=== PATIENT | female | born 1990 | race Caucasian/White ===

== ENCOUNTER 2018-05-16 20:28 | Inpatient (IN) ==
[2018-05-16] MEDS ORDERED: OXYTOCIN/DEXTROSE 5%-WATER 30 UNITS/500 ML BAG IV ONE (21:35)
[2018-05-16] MEDS ORDERED: ONDANSETRON HCL/PF 2 MG/ML VIAL IV PRN ×2 (21:35→22:05)
[2018-05-16] MEDS ORDERED: DEXTROSE 5%-LACTATED RINGERS 1,000 ML IV PRN (21:35)
[2018-05-16] MEDS ORDERED: RINGER'S SOLUTION,LACTATED 1,000 ML IV ONE (21:35)
[2018-05-16] MEDS ORDERED: NALOXONE HCL 1 MG/1 ML SYRG IV PRN (22:05)
[2018-05-16] MEDS ORDERED: BUPIVACAINE HCL/0.9 % NACL/PF 250 ML EP PRN (22:05)
[2018-05-16] MEDS ORDERED: fentaNYL CITRATE/PF 50 MCG/ML AMPUL IT SCH (22:15)
--- NOTE | 2018-05-16 22:24 | HP ---
Chief Complaint - Chief Complaint Date of Service: 05/16/18 Time of Service: 22:12 Chief Complaint: contractions History of Present Illness: 27 yo at 38 6/7 wks presents with complaint of contractions of severe intensity that started around 1800 today. Rh positive Rubella immune GBS negative Medical History (Last Reviewed 05/16/18 @ 22:20 by Dominguez Pacheco DO) Anemia affecting (Acute) Onset Date: 02/16/18 Celiac disease History of wisdom tooth extraction Onset Date: ~2009 Mononucleosis Ovarian cyst Onset Date: ~2015 UTI (urinary tract infection) Surgical History: Surgical History (Last Reviewed 05/16/18 @ 22:20 by Dominguez Pacheco DO) History of appendectomy Onset Date: ~11/2014 History of oral surgery History of tonsillectomy Onset Date: ~01/2013 Family History: Family History (Last Reviewed 05/16/18 @ 22:20 by Dominguez Pacheco DO) Aunt Von Willebrand disease Father Tourette's syndrome Mother Von Willebrand disease Sister Julito-Gastaut syndrome, intractable, with status epilepticus Development delay Grandfather Cancer Grandfather Cancer Grandmother Restless leg syndrome Social History: Preferred Language Kazakh Review Of Systems (GEN) - Review of Systems EENTM: Present: No Symptoms Reported Respiratory: Present: No Symptoms Reported Cardiac: Present: No Symptoms Reported Abdominal: Present: No Symptoms Reported Genitourinary: Present: No Symptoms Reported Musculoskeletal: Present: No Symptoms Reported Neurological: Present: No Symptoms Reported Skin: Present: No Symptoms Reported Endocrine: Present: No Symptoms Reported Allergies/Adverse Reactions: Allergies Allergy/AdvReac Type Severity Reaction Status Date / Time barley Allergy celiac Verified 05/16/18 20:31 disease cephalexin [From Keflex] Allergy vomiting, Verified 05/16/18 20:31 hives Penicillins Allergy Hives Verified 05/16/18 20:31 sulfamethoxazole Allergy Hives Verified 05/16/18 20:31 [From Bactrim] trimethoprim [From Bactrim] Allergy Hives Verified 05/16/18 20:31 wheat Allergy celiac Verified 05/16/18 20:31 disease Home Medications: HOME MEDICATIONS [id number] 400 mcg-om3 35 mg-dha 25 mg-epa 5 mg-fish oil chewable tablet 2 tab PO DAILY tab 02/08/18 [Last Taken Unknown] calcium carbonate 200 mg calcium (500 mg) chewable tablet 200 mg PO BID tab 02/16/18 [Last Taken Unknown] ferrous sulfate 325 mg (65 mg iron) tablet 325 mg PO DAILY #30 tab 02/21/18 [Last Taken Unknown] Exam - Exam Vital Signs: Vital Signs - Last Taken Temp 36.7 C 05/16/18 21:00 Pulse 101 H 05/16/18 21:00 Resp 20 05/16/18 21:00 BP 114/84 05/16/18 21:00 Pulse Ox 100 05/16/18 21:00 Constitutional: Present: Alert, Oriented x3, Cooperative, Moderate distress ENT Exam: Present: hearing grossly normal Respiratory: Present: lungs clear, no respiratory distress Cardiovascular/Chest: Present: normal peripheral pulses, regular rate, rhythm, no edema Abdomen: Present: soft, nontender. Absent: rebound tenderness /Rectal: Present: Other - gravid, cervix 5/80/-2 Extremity: Present: no pedal edema, no calf tenderness Skin Exam: Present: normal color, warm/dry, no cyanosis Lymphatic: Present: no adenopathy Neurologic: Present: alert, normal mood/affect, oriented x 3, other - sciatic pain Appearance: Present: appropriate appearance Eye contact: Present: cooperative, good eye contact, normal speech Thoughts: Present: normal thought pattern Assessment/Plan - Assessment/Plan (1) Labor established Assessment: Admit for routine management of labor. Epidural PRN. Problem: Acute
--- NOTE | 2018-05-16 23:18 | ANES ---
Anesthesia Pre Procedure Eval Vitals/Labs: Last Vital Signs Temp 36.7 C 05/16/18 21:00 Pulse 101 H 05/16/18 21:00 Resp 20 05/16/18 21:00 BP 114/84 05/16/18 21:00 Pulse Ox 100 05/16/18 21:00 HOME MEDICATIONS [id number] 400 mcg-om3 35 mg-dha 25 mg-epa 5 mg-fish oil chewable tablet 2 tab PO DAILY tab 02/08/18 [Last Taken Unknown] calcium carbonate 200 mg calcium (500 mg) chewable tablet 200 mg PO BID tab 02/16/18 [Last Taken Unknown] ferrous sulfate 325 mg (65 mg iron) tablet 325 mg PO DAILY #30 tab 02/21/18 [Last Taken Unknown] Allergies/Adverse Reactions: Allergies Allergy/AdvReac Type Severity Reaction Status Date / Time barley Allergy celiac Verified 05/16/18 20:31 disease cephalexin [From Keflex] Allergy vomiting, Verified 05/16/18 20:31 hives Penicillins Allergy Hives Verified 05/16/18 20:31 sulfamethoxazole Allergy Hives Verified 05/16/18 20:31 [From Bactrim] trimethoprim [From Bactrim] Allergy Hives Verified 05/16/18 20:31 wheat Allergy celiac Verified 05/16/18 20:31 disease - Planned Procedure Planned Procedure: ROL Medication List Reviewed:: Yes Allergies Verified: Yes Medical History (Last Reviewed 05/16/18 @ 23:18 by Berlin Fernández CRNA) Anemia affecting (Acute) Onset Date: 02/16/18 Celiac disease History of wisdom tooth extraction Onset Date: ~2009 Mononucleosis Ovarian cyst Onset Date: ~2015 UTI (urinary tract infection) Surgical History (Last Reviewed 05/16/18 @ 23:18 by Berlin Fernández CRNA) History of appendectomy Onset Date: ~11/2014 History of oral surgery History of tonsillectomy Onset Date: ~01/2013 Family History (Last Updated 05/16/18 @ 22:28 by Dominguez Pacheco DO) Aunt Von Willebrand disease Mother Von Willebrand disease Sister Development delay Julito-Gastaut syndrome, intractable, with status epilepticus Grandfather Cancer Grandfather Cancer Grandmother Restless leg syndrome - Family Anesthesia History Family History:: no untoward family reactions to anesthesia - Airway/Neck/Teeth Within Normal Limits:: Yes Mallampatti Score: 2 Thyromental (T-M) distance: > 6 cm Mandibulo Hyoid distance: > 3 cm - Respiratory Respiratory: lungs clear Smoking Status: Never smoker Sleep Apnea currently treated: No Sleep Apnea by current assessment: No - Cardiovascular Patient History - Cardiac/Respiratory: No pertinent hx Tolerates Activity: Good Heart Sounds: S1 & S2, Regular - Anesthesia Assessment and Plan ASA Class: PS, II, E Anesthesia Type Plan: Epidural Planned difficult intubation/equipment available: No
--- NOTE | 2018-05-16 23:19 | ANES ---
Post Anesthesia Assessment - Vital Signs Vitals: Last Vital Signs Temp 36.7 C 05/16/18 21:00 Pulse 101 H 05/16/18 21:00 Resp 20 05/16/18 21:00 BP 114/84 05/16/18 21:00 Pulse Ox 100 05/16/18 21:00 Airway Patency: Normal - Mental Status Level Of Consciousness: Awake - Pain Level Pain Score: 1 - N/V Assessment Nausea/Vomiting Presence: None Dehydration:: No
--- NOTE | 2018-05-16 23:19 | ANES ---
Post Anesthesia Discharge - Transfer of Care Transfer of Care handoff given to nurse: Yes - Anesthesia Post Op Note Anesthesia Post Op Note: care transferred to OB RN
--- NOTE | 2018-05-16 23:21 | ANES ---
Anesthesia Procedure Note Procedure Note: ANESTHESIA PROCEDURE NOTE Date of Procedure: 05/16/2018 Time of procedure:[]. 2240 Performed by: Mitesh Fernández CRNA Chocolatier: None. Preprocedure diagnosis: Active labor. Post procedure diagnosis: Same. Procedure: Insertion of labor epidural. Indications: The patient is a [27] -year-old [multigravida] female in active labor requesting labor epidural for pain management. Findings: See below. Details of the procedure: The patient was placed in a sitting position. Back was prepped with DuraPrep. Patient was then draped in a sterile fashion. Lidocaine 1% was infiltrated to the skin and subcutaneous tissues at the level of the L3 4 interspace. The epidural space was identified using a 18-gauge Tuohy needle with [id number] technique. 20 mcg fentanyl was given intrathecally using a 27 ga. spinal needle. Epidural catheter was inserted without difficulty. Negative test dose was elicited using 5 mL of 1.5% preservative-free lidocaine plus epinephrine 1 200,000. The epidural catheter was then taped and secured in place. EBL: Minimal. Fluids: N/A. Specimen: N/A. Post procedure condition: The patient tolerated the procedure well. No complications were noted. Thank you for this consultation. Paiz CRNA
--- NOTE | 2018-05-17 00:14 | PN ---
Progess Note - Interim Date: 05/17/18 Time: 00:12 Narrative: 05/17/18 00:12 Patient comfortable with epidural Vital signs stable. FHT:150 baseline, reassuring Contractions q 1-2 min Cervix: Complete, AROM at 2305-clear Impression: Intrauterine at 38-6/7 weeks in labor Plan: Anticipate normal spontaneous vaginal delivery within the next 1-2 hours.
[2018-05-17] MEDS ORDERED: GLYCERIN/WITCH HAZEL LEAF 40 APPL BOX TP PRN (02:08)
[2018-05-17] MEDS ORDERED: BISACODYL 10 MG SUPP.RECT RC PRN (02:08)
[2018-05-17] MEDS ORDERED: OXYTOCIN/DEXTROSE 5%-WATER 30 UNITS/500 ML BAG IV ONE (02:08)
[2018-05-17] MEDS ORDERED: BENZOCAINE/MENTHOL 81 SPRAY CAN TP PRN (02:08)
[2018-05-17] MEDS ORDERED: HYDROCORTISONE 30 APPL TUBE TP PRN (02:08)
[2018-05-17] MEDS ORDERED: oxyCODONE HCL/ACETAMINOPHEN 1 TAB TABLET PO PRN (02:08)
[2018-05-17] MEDS ORDERED: SENNOSIDES 8.6 MG TABLET PO PRN (02:08)
--- NOTE | 2018-05-17 02:10 | OR ---
Operative Report - Dictated Report Narrative: Spontaneous vaginal delivery of viable male at 0152 on 05/17/2018 with Apgars 9 and 9, weighing 3481 g in JOSHUA position. Cord clamping delayed approximately 1 minute Placenta delivered complete, intact, with three vessel cord Estimated blood loss: less than 50 ml Anesthesia: epidural Lacerations: None History for MU Definition: * The number of deliveries resulting in a live the patient experienced prior to current hospitalization * The previous delivery of live twins or any live multiple gestation is considered one live event. *If primagravida or nulliparous is documented select zero for the number of p revious live births. Live Events: 1
[2018-05-17] MEDS: IBUPROFEN 800 MG TABLET PO PRN ×3 (02:39→17:24)
[2018-05-17] MEDS: oxyCODONE HCL/ACETAMINOPHEN 1 TAB TABLET PO PRN ×3 (06:02→19:49)
[2018-05-17] MEDS: DOCUSATE SODIUM 100 MG CAPSULE PO SCH ×2 (10:41→22:43)
[2018-05-17] MEDS: PRENATAL VITS96/IRON FUM/FOLIC 1 TAB TABLET PO SCH (10:42)
[2018-05-17] MEDS: FERROUS SULFATE 325 MG TABLET PO SCH (10:42)
[2018-05-17] MEDS: CALCIUM CARBONATE 500 MG TAB.CHEW PO SCH ×2 (10:43→22:43)
[2018-05-18] MEDS: IBUPROFEN 800 MG TABLET PO PRN ×3 (01:18→19:11)
[2018-05-18] MEDS: oxyCODONE HCL/ACETAMINOPHEN 1 TAB TABLET PO PRN ×2 (06:14→13:01)
[2018-05-18] MEDS: DOCUSATE SODIUM 100 MG CAPSULE PO SCH ×2 (09:42→20:29)
[2018-05-18] MEDS: FERROUS SULFATE 325 MG TABLET PO SCH (09:42)
[2018-05-18] MEDS: PRENATAL VITS96/IRON FUM/FOLIC 1 TAB TABLET PO SCH (09:43)
[2018-05-18] MEDS: CALCIUM CARBONATE 500 MG TAB.CHEW PO SCH ×2 (09:44→20:30)
--- NOTE | 2018-05-18 15:09 | PN ---
Subjective - Date and Time Seen Date: 05/18/18 Time: 15:07 Subjective Narrative: Pt without complaints. VB is normal Objective Objective Narrative: see vital signs - Review of Systems Generalized/Overall Review: Reports: No Symptoms Reported Misc: All systems neg except as marked - Vitals Vitals: Last Vital Signs Temp 37 C 05/18/18 12:16 Pulse 82 05/18/18 12:16 Resp 16 05/18/18 12:16 BP 115/66 05/18/18 12:16 Pulse Ox 98 05/18/18 12:16 - Exam Constitutional: Present: Alert, Oriented x3, Cooperative, No distress Abdomen: Present: soft, nontender, nondistended - fundus is firm and nontender Extremity: Present: non-tender, normal inspection, no calf tenderness, pedal edema Skin Exam: Present: normal color, warm/dry, no cyanosis Appearance: Present: appropriate appearance Eye contact: Present: cooperative Thoughts: Present: normal thought pattern Assessment/Plan Plan Narrative: PPD 1 s/p Doing well Discharge tomorrow
[2018-05-19] MEDS: IBUPROFEN 800 MG TABLET PO PRN ×2 (01:35→08:39)
[2018-05-19] MEDS: oxyCODONE HCL/ACETAMINOPHEN 1 TAB TABLET PO PRN (04:28)
[2018-05-19 07:42] VITALS: BP 108/54
--- NOTE | 2018-05-19 07:57 | PN ---
Subjective - Date and Time Seen Date: 05/19/18 Time: 07:55 Subjective Narrative: Pt without complaints. VB is normal Objective Objective Narrative: see vital signs - Review of Systems Generalized/Overall Review: Reports: No Symptoms Reported Misc: All systems neg except as marked - Vitals Vitals: Last Vital Signs Temp 37.0 C 05/19/18 07:40 Pulse 86 05/19/18 07:40 Resp 16 05/19/18 07:40 BP 108/54 05/19/18 07:40 Pulse Ox 97 05/19/18 07:40 - Exam Constitutional: Present: Alert, Oriented x3, Cooperative, No distress Abdomen: Present: soft, nontender, nondistended - fundus is firm Extremity: Present: non-tender, normal inspection, no calf tenderness, pedal edema Skin Exam: Present: normal color, warm/dry, no cyanosis Appearance: Present: appropriate appearance Eye contact: Present: cooperative Thoughts: Present: normal thought pattern Assessment/Plan Plan Narrative: PPD 2 s/p 1. Doing well 2. Discharge home today
[2018-05-19] MEDS: PRENATAL VITS96/IRON FUM/FOLIC 1 TAB TABLET PO SCH ×2 (08:39→08:42)
[2018-05-19] MEDS: FERROUS SULFATE 325 MG TABLET PO SCH (08:39)
[2018-05-19] MEDS: DOCUSATE SODIUM 100 MG CAPSULE PO SCH (08:39)
[2018-05-19] MEDS: CALCIUM CARBONATE 500 MG TAB.CHEW PO SCH (08:40)
== END 2018-05-19 12:06 | disposition home or self-care (01) | DRG 807 ==
LOC: OBCLINIC 20:28 → OB 20:49
PROVIDERS: ADMIT Obstetrics & Gynecology; ATTEND Obstetrics & Gynecology
CPT/HCPCS: 59025